=== PATIENT | female | born 1960 | race African-American/Black ===

== ENCOUNTER 2016-05-13 17:14 | Emergency (ER) | payer SELFPAY ==
[~2016-05-13] VITALS: Ht 170.2 cm; Wt 100.2 kg
[~2016-05-13 17:14] MED LIST: AMLODIPINE BES2.5 MG ORAL; GABAPENTIN300 MG ORAL; HYDROCHLOROTH12.5 M2 ORAL; IBUPROFEN600 MG ORAL; NORCO 5-325 TA1 EACH ORAL; NORCO 7.5-3251 EACH PO; SERTRALINE HCL25 MG ORAL
[2016-05-13] MEDS ORDERED: Lidocaine 1% MPF 10mg/ml 5ml IM ONE (17:45)
[2016-05-13 17:49] VITALS: BP 143/79
[2016-05-13 18:27] VITALS: BP 143/79
[2016-05-13] MEDS ORDERED: CEPHALEXIN500 MG ORAL (18:28)
--- NOTE | 2016-05-13 23:04 | Emergency Room Report ---
History of Present Illness General Chief Complaint: Pain Source: Patient Present Illness HPI The patient is a 55-year-old female presenting with right thumb pain and swelling. The patient states that she gave herself a manicure one week prior and then noticed swelling to the edge of her nail of the thumb. The patient denies biting her fingernails. The pain is described as a 7/10 dull ache it does not radiate. Patient denies numbness or tingling and denies any discharge or bleeding from the digit. The patient denies any other symptoms Allergies: Coded Allergies: No Known Allergies (Unverified , 02/10/13) Patient History Past Medical History: see triage record Pertinent Family History: none Last Menstrual Period: 03/27/16 Now: No Reviewed Nursing Documentation: PMH: Agreed, PSxH: Agreed Nursing Documentation-PMH Past Medical History: No History, Except For Hx Cardiac Problems: Yes - palpitations Hx Hypertension: Yes Hx Gastrointestinal Problems: Yes - GERD Review of Systems All Other Systems: negative except mentioned in HPI Physical Exam Vital Signs Date Time Temp Pulse Resp B/P Pulse Ox O2 Delivery O2 Flow Rate FiO2 05/13/16 17:28 98.2 83 14 156/74 97 Room Air Sp02 EP Interpretation: reviewed, normal General Appearance: no apparent distress, alert, GCS 15, non-toxic Head: normocephalic, atraumatic Eyes: bilateral eye PERRL, bilateral eye normal inspection ENT: hearing grossly normal, normal pharynx, no angioedema, normal voice Neck: full range of motion, supple/symm/no masses Respiratory: chest non-tender, lungs clear, normal breath sounds, speaking full sentences Cardiovascular #1: regular rate, rhythm, no edema Cardiovascular #2: 2+ carotid (R), 2+ carotid (L), 2+ radial (R), 2+ radial (L) , 2+ dorsalis pedis (R), 2+ dorsalis pedis (L) Gastrointestinal: normal bowel sounds, non tender, soft, non-distended, no guarding, no rebound Rectal: deferred Genitourinary: normal inspection, no CVA tenderness Musculoskeletal: back normal, gait/station normal, normal range of motion Neurologic: alert, oriented x3, responsive, motor strength/tone normal, sensory intact, speech normal Psychiatric: judgement/insight normal, memory normal, mood/affect normal, no suicidal/homicidal ideation Reflexes: 3+ bicep (R), 3+ bicep (L), 3+ tricep (R), 3+ tricep (L), 3+ knee (R) , 3+ knee (L) Skin: no rash, warm/dry, well hydrated, other - There is erythema and edema to the right first digit medial nail fold. Tender to palpation over this area. No discharge or bleeding Lymphatic: no adenopathy Procedures Incision and Drainage Incision and Drainage : Consent: Verbal Site: R thumb Blade Size: 11 I & D Procedure: betadine prep, sterile drapes applied Wound Location: upper extremity Wound's Depth, Shape: superficial Wound Length (cm): 1 Wound Explored: contaminated Irrigated w/ Saline (ccs): 100 Anesthesia: 1% Lidocaine Volume Anesthetic (ccs): 4 Splint Applied?: No Sling Applied?: No Patient Tolerated: Well Complications: None Medical Decision Making PA Attestation Dr. Larsen is my supervising physician. Patient management was discussed with my supervising physician Diagnostic Impression: Primary Impression: Paronychia of finger Qualified Codes: L03.011 - Cellulitis of right finger ER Course The patient is a 55-year-old female presenting with right thumb pain and swelling. Differential diagnosis considered: Felon, paronychia, sprain PE: vitals WNL. NAD There is erythema and edema to the right first digit medial nail fold. Tender to palpation over this area. No discharge or bleeding Betadine prep was used to clean the skin and surrounding area. One percent lidocaine without epinephrine was used for digital block. A #11 blade was used to make an incision at the base of the nail. Once the incision was made, purulent material was expressed with blood. The wound was then cleaned and sterile dressing applied. The patient is discharged home with a prescription for Keflex and will followup with primary care physician Last Vital Signs Date Time Temp Pulse Resp B/P Pulse Ox O2 Delivery O2 Flow Rate FiO2 05/13/16 18:27 98.4 83 13 143/79 99 Room Air Status: improved Disposition: HOME, SELF-CARE Condition: Improved Scripts Cephalexin* (KEFLEX*) 500 Mg Capsule 500 MG ORAL EVERY 12 HOURS, #14 CAP 0 Refills Prov: DERICK CHERY 05/13/16 Referrals: NON PHYSICIAN (PCP) Patient Instructions: Paronychia Additional Instructions: I discussed my findings with the patient. All questions and concerns have been answered. Treatment and medication compliance have been addressed. I advised the patient that they need to follow up with PMD in 3-5 days. Return to ED if symptoms worsen, new symptoms arise, or if needed for any reason. Patient verbalized understanding of discharge instructions. DERICK CHERY May 13, 2016 23:04
== END 2016-05-13 18:35 | disposition home or self-care (01) ==
LOC: EMR 18:32
DX: L03.011 Cellulitis of right finger (principal); I10 Essential (primary) hypertension; K21.9 Gastro-esophageal reflux disease without esophagitis
CPT/HCPCS: 10060

== ENCOUNTER 2017-12-20 14:09 | Emergency (ER) | payer OTHER ==
[~2017-12-20] VITALS: Ht 170.2 cm; Wt 99.8 kg
[~2017-12-20 14:09] MED LIST changes: +CEPHALEXIN500 MG ORAL
[2017-12-20 14:30] VITALS: BP 132/69
[2017-12-20 15:02] LABS: BILIRUBIN, URINE NEGATIVE (NEGATIVE); GLUCOSE, URINE (UA) NEGATIVE (NEGATIVE); KETONES,URINE NEGATIVE (NEGATIVE); LEUKOCYTE ESTERASE ,URINE 1+ (NEGATIVE); NITRITE,URINE NEGATIVE (NEGATIVE); PH,URINE 6 (4.5-8.0); PROTEIN,URINE 1+ (NEGATIVE); UROBILINOGEN,URINE 1 MG/DL (0.0-1.0)
[2017-12-20 15:06] LABS: APPEARANCE,URINE SLIGHTLY CLOUDY; COLOR,URINE YELLOW
--- NOTE | 2017-12-20 15:27 | Emergency Room Report ---
History of Present Illness General Chief Complaint: Headache Source: Patient Present Illness HPI 57 YO Female Presents to the emergency department complaining of 8 out of 10 in severity right-sided headache persistent times one week. Patient reports progressive onset she denies sudden onset. Patient states that she has a history of cervical radiculopathy as well as lumbar radiculopathy and states that she is also having exacerbation of her cervical symptoms that radiate towards the right side of the neck and shoulder. Patient denies tinnitus or ear pain the affected side. Patient denies changes in vision or hearing. Patient reports history of headaches in the past she denies fevers, chills, recent head trauma, dysuria, frequency or hematuria. Denies recent dental procedures or tooth pain. Patient denies nausea or vomiting. Patient states that she has been taking [id number] medications which provided little to no relief. Denies CP, Palpitations, LOC, AMS, dizziness, Changes in Vision, Sensation, or paresthesias. Allergies: Coded Allergies: No Known Allergies (Unverified , 02/10/13) Patient History Past Medical History: see triage record, migraines Past Surgical History: none Pertinent Family History: none Last Menstrual Period: menopause Now: No Reviewed Nursing Documentation: PMH: Agreed; PSxH: Agreed Nursing Documentation-PMH Past Medical History: No History, Except For Hx Cardiac Problems: Yes - palpitations Hx Hypertension: Yes Hx Gastrointestinal Problems: Yes - GERD Hx Neurological Problems: Yes - migraine Review of Systems All Other Systems: negative except mentioned in HPI Physical Exam Vital Signs Date Time Temp Pulse Resp B/P (MAP) Pulse Ox O2 Delivery O2 Flow Rate FiO2 12/20/17 14:19 98.1 79 16 132/69 95 Room Air 98.1 Sp02 EP Interpretation: reviewed, normal General Appearance: no apparent distress - No photosensitivity, normal mood, alert and cooperative, alert, GCS 15, non-toxic Head: normocephalic, atraumatic Eyes: bilateral eye normal inspection, bilateral eye PERRL ENT: hearing grossly normal, normal voice, TMs + canals normal, uvula midline Neck: full range of motion, no meningismus, tender lateral - right lateral ttp cervical area. no midline ttp Respiratory: chest non-tender, lungs clear, normal breath sounds, speaking full sentences Cardiovascular #1: regular rate, rhythm, normal capillary refill Genitourinary: normal inspection Musculoskeletal: back normal, gait/station normal, normal range of motion, non- tender Neurologic: alert, oriented x3, responsive, motor strength/tone normal, sensory intact, normal gait, speech normal, grossly normal Psychiatric: judgement/insight normal Skin: normal color, no rash, warm/dry, well hydrated Lymphatic: no adenopathy Medical Decision Making PA Attestation Dr. Parson is my supervising Physician whom patient management has been discussed with. Diagnostic Impression: Primary Impression: Headache Qualified Codes: R51 - Headache Additional Impression: Cervical radiculopathy ER Course 57 YO Female Presents to the emergency department complaining of 8 out of 10 in severity right-sided headache persistent times one week. Patient reports progressive onset she denies sudden onset. Patient states that she has a history of cervical radiculopathy as well as lumbar radiculopathy and states that she is also having exacerbation of her cervical symptoms that radiate towards the right side of the neck and shoulder. Patient denies tinnitus or ear pain the affected side. Patient denies changes in vision or hearing. Patient reports history of headaches in the past she denies fevers, chills, recent head trauma, dysuria, frequency or hematuria. Denies recent dental procedures or tooth pain. Patient denies nausea or vomiting. Patient states that she has been taking [id number] medications which provided little to no relief. Denies CP, Palpitations, LOC, AMS, dizziness, Changes in Vision, Sensation, or paresthesias. Ddx considered but are not limited to migraine, SAH, Vertebral artery dissection or occlusion, Pseudomotor Cerebri, Mass lesion, Cluster CAMARILLO, Tension CAMARILLO, Post lumbar puncture CAMARILLO. Vital signs: are WNL, pt. is afebrile H&PE are most consistent with Head ache and exacerbation of cervical radiculopathy symptoms. no focal neurological deficits. ORDERS: -UA: Unremarkable ED INTERVENTIONS: -Reglan PO -Tylenol PO -Lidoderm patch TP -I do not identify an emergent condition at this time. With current presentation , pt. is stable for close outpatient follow up and conservative treatment. D/ w pt. to return promptly to ED with worsening or new symptoms.- Pt. verbalizes' understanding and agreement with proposed treatment plan.proposed treatment plan. DISCHARGE: At this time pt. is stable for d/c to home. Will provide printed patient care instructions, and any necessary prescriptions. Care plan and follow up instructions have been discussed with the patient prior to discharge. Labs Test 12/20/17 14:55 Urine Color Yellow Urine Appearance Slightly cloudy Urine pH 6 (4.5-8.0) Urine Specific [place] 1.015 (1.005-1.035) Urine Protein 1+ (NEGATIVE) Urine Glucose (UA) Negative (NEGATIVE) Urine Ketones Negative (NEGATIVE) Urine Occult Blood Negative (NEGATIVE) Urine Nitrite Negative (NEGATIVE) Urine Bilirubin Negative (NEGATIVE) Urine Urobilinogen 1 MG/DL (0.0-1.0) Urine Leukocyte Esterase 1+ (NEGATIVE) Urine RBC 0-2 /HPF (0 - 2) Urine WBC 0-2 /HPF (0 - 2) Urine Squamous Epithelial Cells Few /LPF (NONE/OCC) Urine Bacteria Few /HPF (NONE) Last Vital Signs Date Time Temp Pulse Resp B/P (MAP) Pulse Ox O2 Delivery O2 Flow Rate FiO2 12/20/17 14:19 98.1 79 16 132/69 95 Room Air 98.1 Disposition: HOME, SELF-CARE Condition: Stable Scripts Acetaminophen* (TYLENOL EXTRA STRENGTH*) 500 Mg Tablet 500 MG ORAL Q6H, #20 TAB 0 Refills Prov: Jen Fowler 12/20/17 Lidocaine (Lidoderm) 1 Each Adh..patch 1 PATCH TOPIC DAILY, #30 PATCH 0 Refills Patch(es) may remain in place for up to 12 hours in any 24-hour period. Prov: Jen Fowler 12/20/17 Methocarbamol* (ROBAXIN*) 500 Mg Tablet 1000 MG PO TID, #42 TAB 0 Refills Prov: Jen Fowler 12/20/17 Patient Instructions: General Headache Without Cause Additional Instructions: Take medications as directed. Follow up with a Neurologist in 3-5 days, even if your symptoms have resolved. --Please review list of primary care clinics, if you do not already have a primary care provider -!-!-Return sooner to ED if new symptoms occur, or current symptoms become worse -!-!- - Please note that this Emergency Department Report was dictated using [employer] specialist technology software, occasionally this can lead to erroneous entry secondary to interpretation by the dictation equipment. Jen Fowler Dec 20, 2017 15:27
[2017-12-20] MEDS ORDERED: ROBAXIN500 MG PO (15:30)
[2017-12-20] MEDS ORDERED: LIDODERM700 M1 TOPIC (15:30)
[2017-12-20] MEDS ORDERED: TYLENOL EXTRA500 MG ORAL (15:30)
[2017-12-20 15:44] VITALS: BP 127/71
== END 2017-12-20 15:44 | disposition home or self-care (01) ==
LOC: EMR 15:30
DX: R51 Headache (principal); M54.12 Radiculopathy, cervical region; I10 Essential (primary) hypertension; K21.9 Gastro-esophageal reflux disease without esophagitis; M54.16 Radiculopathy, lumbar region
CPT/HCPCS: 81003; 99283